=== PATIENT | female | born 1975 ===

== ENCOUNTER 2020-04-19 14:32 | Outpatient (REF) | payer BC, SELFPAY ==
[2020-04-21 12:23] LABS: COVID-19 RT-PCR Result NEGATIVE (Negative)
== END 2020-04-19 14:52 ==
LOC: NCHCN 14:32
PROVIDERS: PCP Family Medicine; Visit Provider Family Medicine
DX: Z11.59 Encounter for screening for other viral diseases (principal)
CPT/HCPCS: U0003

== ENCOUNTER 2020-04-27 21:44 | Outpatient (REF) | payer BC, SELFPAY ==
[2020-04-30 11:11] LABS: SARS-CoV-2 RNA Undetected (Undetected); SARS-CoV-2 Specimen Source Nasal
== END 2020-04-27 22:04 ==
LOC: NCHCN 21:44
PROVIDERS: PCP Family Medicine; Visit Provider Family Medicine
DX: Z20.828 Contact with and (suspected) exposure to other viral communicable diseases (principal)
CPT/HCPCS: U0003

== ENCOUNTER 2020-05-11 12:59 | Outpatient (REF) | payer BC, SELFPAY ==
[2020-05-14 06:48] LABS: SARS-CoV-2 RNA Undetected (Undetected); SARS-CoV-2 Specimen Source Nasopharynx
== END 2020-05-11 13:19 ==
LOC: NCHCN 12:59
PROVIDERS: PCP Family Medicine; Visit Provider Family Medicine
DX: R50.9 Fever, unspecified (principal)
CPT/HCPCS: U0003

== ENCOUNTER 2022-02-01 15:41 | Outpatient (REF) | payer BC, SELFPAY ==
--- NOTE | 2022-02-01 14:20 | PAPFT_PTH ---
PATIENT: Sydnee Mclaughlin [id number] AGE/SX: 46/F ROOM: RE02/01/[address]: Milli Mcgrath : 1975 BED: DIS: 02/01/2022 SPEC #: [id number] RECD: 02/02/22 12:24 STATUS: PRASANNA REAwilda #: [id number] SURINDER: 02/01/22 14:[address]: Milli Mcgrath DEPT: [facility] Cytology RECD BY: Soraya Mojica Tissues: 1 - CX/ENDOCX FOR PAP SMEARS Procedures: PAP THIN PREP/[facility] Screening HPV DNA PROBE Comments: [id number]
== END 2022-02-01 15:42 | disposition home or self-care (01) ==
LOC: NCHCN 15:41
PROVIDERS: PCP Family Medicine; Visit Provider Family Medicine
DX: Z12.4 Encounter for screening for malignant neoplasm of cervix (principal); Z11.51 Encounter for screening for human papillomavirus (HPV)
CPT/HCPCS: 88142; 87624

== ENCOUNTER 2025-02-06 14:54 | Outpatient (REF) | payer BC, SELFPAY ==
--- NOTE | 2025-02-06 08:40 | PAPFT_PTH ---
PATIENT: Sydnee Mclaughlin LOC: [facility] U#:[id number] AGE/SX: 49/F ROOM: RE02/06/[address]: Milli Mcgrath : 1975 BED: DIS: 02/06/2025 SPEC #: [id number] RECD: 02/06/25 17:05 STATUS: PRASANNA BASURTO #: [id number] SURINDER: 02/06/25 08:[address]: Milli Mcgrath [facility]PT: [facility] Cytology RECD BY: Soraya Mojica Tissues: 1 - CX/ENDOCX FOR PAP SMEARS Procedures: PAP THIN PREP/[facility] Screening Comments: [id number]
== END 2025-02-06 14:55 | disposition home or self-care (01) ==
LOC: NCHCN 14:54
PROVIDERS: PCP Family Medicine; Visit Provider Family Medicine
DX: Z12.4 Encounter for screening for malignant neoplasm of cervix (principal)
CPT/HCPCS: 88142